=== PATIENT | male | born 1985 | race Caucasian/White ===

== ENCOUNTER 2017-04-15 13:06 | Emergency (ER) | payer OTHER ==
[~2017-04-15] VITALS: Ht 167.6 cm; Wt 78.3 kg
[~2017-04-15 13:06] MED LIST: ALBUTEROL SULF8.5 GM IH; AZITHROMYCIN250 MG1 PO; NORCO 5/3251 TABLET PO; OXYCODONE-APAP1 EACH PO; PREDNISONE20 MG PO; ZOFRAN ODT8 MG PO
[2017-04-15] MEDS ORDERED: BACTRIM,SEPT1 TABLET PO (15:35)
[2017-04-15 15:44] VITALS: BP 132/80
== END 2017-04-15 15:54 | disposition home or self-care (01) ==
LOC: EME 13:06
PROC: 0H9BXZZ Drainage of Right Upper Arm Skin, External Approach (ICD-10-PCS; principal; 2017-04-15)
DX: L02.413 Cutaneous abscess of right upper limb (principal); F11.10 Opioid abuse, uncomplicated; J45.909 Unspecified asthma, uncomplicated; F17.200 Nicotine dependence, unspecified, uncomplicated
CPT/HCPCS: 99281; 99284

== ENCOUNTER 2017-04-17 13:31 | Emergency (ER) | payer OTHER ==
[~2017-04-17] VITALS: Ht 170.2 cm; Wt 77.3 kg
[~2017-04-17 13:31] MED LIST changes: +BACTRIM,SEPT1 TABLET PO
[2017-04-17 16:36] VITALS: BP 143/80
== END 2017-04-17 16:38 | disposition home or self-care (01) ==
LOC: EME 13:31
DX: L02.413 Cutaneous abscess of right upper limb (principal); Z48.00 Encounter for change or removal of nonsurgical wound dressing; J45.909 Unspecified asthma, uncomplicated; F17.200 Nicotine dependence, unspecified, uncomplicated
CPT/HCPCS: 99281; 99284

== ENCOUNTER 2017-04-19 12:36 | Emergency (ER) | payer OTHER ==
[~2017-04-19] VITALS: Ht 170.2 cm; Wt 78.5 kg
[2017-04-19 16:10] VITALS: BP 136/80
== END 2017-04-19 16:11 | disposition home or self-care (01) ==
LOC: EME 12:36
DX: Z48.01 Encounter for change or removal of surgical wound dressing (principal); L02.413 Cutaneous abscess of right upper limb; F17.200 Nicotine dependence, unspecified, uncomplicated
CPT/HCPCS: 99281; 99282